=== PATIENT | female | born 1970 | race Caucasian/White ===

== ENCOUNTER 2020-08-27 10:41 | Day surgery (SDC) | payer BC, OTHER ==
[2020-08-27 10:57] LABS: Specific Gravity 1.015 (1.005-1.030)
[2020-08-27] MEDS ORDERED: Ringers Lactate 1,000 ML IV ONE (11:14)
--- OUTSIDE RECORDS SUMMARY | 2020-08-27 11:29 | XMS REPORT | Continuity of Care Document ---
:1970 Author Organization [facility] t Address [facility] [place] [address] Care Team Providers Name Role Phone Eduardo Primary Care Physician Unavailable Valdemar COLE, Gus Attending Clinician Payers Payer Name Policy Type Policy Effective Expiration Source Number Date Date [employer] [id number] 2019 [place] CHOICE/CHOICE 00:00:00 Jain [id number]-Prese ntHMO/PPO Problems This patient has no known problems. Allergies, Adverse Reactions, Alerts This patient has no known allergies or adverse reactions. Social History Social Habit Start Date Stop Date Quantity Comments Source Sex Assigned At [facility] Tobacco use and 2019-10-16 2019-10-16 Never used [facility] exposure 00:00:00 00:00:00 Alcohol intake 2019-10-16 2019-10-16 Ex-drinker [facility]odist 00:00:00 00:00:00 (finding) Smoking Status Start Date Stop Date Source [facility] Medications This patient has no known medications. Vital Signs Vital Name Observation Time Observation Value Comments Source Systolic blood 2019-10-16 17:35:00 128 mm[Hg] Reneeto n Jain pressure Diastolic blood 2019-10-16 17:35:00 91 mm[Hg] [place] on Jain pressure Heart rate 2019-10-16 17:35:00 73 /min [place] [facility] Respiratory rate 2019-10-16 17:35:00 20 /min [place] Jain Oxygen saturation in 2019-10-16 17:35:00 99 /min [place] [facility] Arterial blood by Pulse oximetry Body temperature 2019-10-16 16:06:00 36.89 Nettie Renee dwyer Jain Procedures Procedure Date / Time Performed Performing Clinician Sourc e CT CERVICAL SPINE WO 2019-10-16 16:39:[address] HEAD WO CONTRAST 2019-10-16 16:33:23 Max Aldrich Jerry césar Suresh Plan of Care Planned Activity Planned Date Details Comments Source Future Scheduled 2020-03-01 INFLUENZA VACCINE Reneeto n Jain Test 00:00:00 [code = INFLUENZA VACCINE] Future Scheduled 1993 Screening for [facility] thodist Test 00:00:00 malignant neoplasm of cervix (procedure) [code = 635990667] Future Scheduled 1988 COVID-19 VACCINE (1 [place] [facility] Test 00:00:00 of 2) [code = COVID-19 VACCINE (1 of 2)] Encounters Start End Encounter Admission Attending Care Care Encounter Source Date/Time Date/Time Type Type Clinicians Facility Department ID 2019-10-16 2019-10-16 Emergency [facility] 064 [id number] [place] 00:00:00 00:00:00 MAX Romero6 Method i st Results Test Description Test Time Test Comments Results Result Sour e Comments CT Cervical 2019-09-30 [facility] [place] Spine Wo [address] Contrast 16:41:12 10/16/2019 4:44 PM CDTEXAMINATION: CT CERVICAL SPINE WO CONTRASTCLINICAL HISTORY: posterior GRIFFIN s p fall 3 - 4 wks prior COMPARISON: NoneTECHNIQUE: Axial noncontrast enhanced images of the cervical spine were obtained with coronal and sagittal reconstructed algorithms. CT imaging was performed with iterative reconstruction technique and/or automated exposure control to reduce radiation dose.FINDINGS:The alignment of the cervical spine is within normal limits. No subluxation. No displaced fractures identified. Vertebral body heights are preserved. No developmental canal narrowing. No suspicious osseous lesion. No prevertebral edema or neck mass identified. No cervical lymphadenopathy or paraspinal hematomas. Thyroid gland is normal in appearance. Lung apices are clear.Axial images through the disc spaces demonstrate the following:C1-C2: No significant spinal canal stenosis.C2-C3: No significant posterior disc disease, spinal canal, subarticular zone, or neural foraminal stenosis.C3-C4: No significant posterior disc disease, spinal canal, subarticular zone, or neural foraminal stenosis.C4-C5: No significant posterior disc disease, spinal canal, subarticular zone, or neural foraminal stenosis.C5-C6: No significant posterior disc disease, spinal canal, subarticular zone, or neural foraminal stenosis.C6-C7: Mild intervertebral disc height loss with marginal endplate osteophytes which indent the ventral thecal sac and results in mild bilateral neural foraminal narrowing, image 77 of series 8. Spinal canal is patent.C7-T1: No significant posterior disc disease, spinal canal, subarticular zone, or neural foraminal stenosis.IMPRESSION: No fractures or traumatic injuries identified within the cervical spine.[id number] CT Head Wo 2019-09-30 [facility], [place] Contrast 7 Radiology Results Methodi 16:35:31 - 10/16/2019 4:38 PM CDTEXAMINATION: CT HEAD WO CONTRASTCLINICAL HISTORY: fall 3 -4 wks prior persistent GRIFFIN disorientation COMPARISON: None.TECHNIQUE: Noncontrast head CT performed using radiation dose reduction techniques. Technical factors are evaluated and adjusted to ensure appropriate moderation of exposure. Automated dose management technology is applied to adjust radiation exposure while achieving a diagnostic quality image. FINDINGS:No acute intra or extra-axial hemorrhage identified. The cedeno-white matter differentiation is preserved. The basal ganglia, thalami, midbrain, martinez and cervicomedullary junction are unremarkable. No mass, mass effect, or midline shift is seen. Ventricles and sulci are normal in appearance for patient's age. Basal cisterns are patent. Calvarium is intact.The orbital contents are symmetric and normal in appearance. The visualized paranasal sinuses are unremarkable. The mastoid air cells and middle ear cavities are clear. Scalp soft tissues are unremarkable. No scalp hematomas.IMPRESSION: No acute intracranial abnormality identified.[id number]
--- OUTSIDE RECORDS SUMMARY | 2020-08-27 11:29 | XMS REPORT | Clinical Summary ---
:1970 Author Organization [facility] Address [address] [place] [address] Care Team Providers Name Role Phone Chace Clark Primary Care Provider Unavailable Allergies No Known Active Allergies Medications No known medications Active Problems Not on file Encounters Date Type Specialty Care Team Description 10/16/2019 Emergency Emergency Medicine Max Aldrich Nonintrac table headache, MD Gus unspecified ch ronicity pattern, unspec ified headache type ( Primary Dx) 10/16/2019 Travel after 08/27/2019 Surgical History Surgery Date Site/Laterality Comments BACK SURGERY Social History Tobacco Use Types Packs/Day Years Used Date Never Smoker Smokeless Tobacco: Never Used Alcohol Use Drinks/Week oz/Week Comments Not Currently Sex Assigned at Date Recorded Not on file Last Filed Vital Signs Vital Sign Reading Time Taken Comments Blood Pressure 128/91 10/16/2019 5:35 PM CDT Pulse 73 10/16/2019 5:35 PM CDT Temperature 36.9 C (98.4 F) 10/16/2019 4:06 PM CDT Respiratory Rate 20 10/16/2019 5:35 PM CDT Oxygen Saturation 99% 10/16/2019 5:35 PM CDT Inhaled Oxygen Concentration - - Weight - - Height - - Body Mass Index - - Plan of Treatment Health Maintenance Due Date Last Done Comments COVID-19 VACCINE (1 of 2) 1988 CERVICAL CANCER SCREENING 1993 INFLUENZA VACCINE 03/01/2020 Procedures Procedure Name Priority Date/Time Associated Diagnosis Comme nts CT CERVICAL SPINE STAT 10/16/2019 4:39 PM Res ults for this WO CONTRAST CDT procedure are i n the results section. CT HEAD WO CONTRAST STAT 10/16/2019 4:33 PM R esults for this CDT procedure are i n the results section. after 08/27/[address] Cervical Spine Wo Contrast (10/16/2019 4:39 PM CDT) Specimen Narrative Performed At EXAMINATION: CT CERVICAL SPINE WO CONTRA [facility] CLINICAL HISTORY: posterior GRIFFIN s p fal l 3 - 4 wks prior COMPARISON: None TECHNIQUE: Axial noncontrast enhanced images of the ce rvical spine were obtained with coronal and sagittal reconstructed algor ithms. CT imaging was performed with iterative reconstruction technique and/or automated exposure control to reduce radiation dose. FINDINGS: The alignment of the cervical spine is within normal l imits. No subluxation. No displaced fractures identified. Verteb ral body heights are preserved. No developmental canal narrowing. No dumas spicious osseous lesion. No prevertebral edema or neck mass identified. No cerv ical lymphadenopathy or paraspinal hematomas. Thyroid gland is normal in appearance. Lung apices are clear. Axial images through the disc spaces dem onstrate the following: C1-C2: No significant spinal canal steno sis. C2-C3: No significant posterior disc disease, spinal c anal, subarticular zone, or neural foraminal stenosis. C3-C4: No significant posterior disc disease, spinal c anal, subarticular zone, or neural foraminal stenosis. C4-C5: No significant posterior disc disease, spinal c anal, subarticular zone, or neural foraminal stenosis. C5-C6: No significant posterior disc disease, spinal c anal, subarticular zone, or neural foraminal stenosis. C6-C7: Mild intervertebral disc height loss with gisela nal endplate osteophytes which indent the ventral thecal sac and re sults in mild bilateral neural foraminal narrowing, image 77 of seri es 8. Spinal canal is patent. C7-T1: No significant posterior disc disease, spinal c anal, subarticular zone, or neural foraminal stenosis. IMPRESSION: No fractures or traumatic injuries ident ified within the cervical spine. [id number] Procedure Note Hm Interface, Radiology Results Incoming - 10/16/2019 4:44 PM CDT EXAMINATION: CT CERVICAL SPINE WO CONTRAST CLINICAL HISTORY: posterior GRIFFIN s p fall 3 - 4 wks prior COMPARISON: None TECHNIQUE: Axial noncontrast enhanced im ages of the cervical spine were obtained with coronal and sagittal reconstructed algorithms. CT imaging was performed with iterative reconstruction technique and/or automated exposure control to reduce radiation dose. FINDINGS: The alignment of the cervical spine is w ithin normal limits. No subluxation. No displaced fractures identified. Vertebral body heights are preserved. No developmental canal narrowing. No suspicious osseous lesion. No prevertebral edema or neck mass ident ified. No cervical lymphadenopathy or paraspinal hematomas. Thyroid gland is normal in appearance. Lung apices are clear. Axial images through the disc spaces dem onstrate the following: C1-C2: No significant spinal canal steno sis. C2-C3: No significant posterior disc dis ease, spinal canal, subarticular zone, or neural foraminal stenosis. C3-C4: No significant posterior disc dis ease, spinal canal, subarticular zone, or neural foraminal stenosis. C4-C5: No significant posterior disc dis ease, spinal canal, subarticular zone, or neural foraminal stenosis. C5-C6: No significant posterior disc dis ease, spinal canal, subarticular zone, or neural foraminal stenosis. C6-C7: Mild intervertebral disc height l oss with marginal endplate osteophytes which indent the ventral thecal sac and results in mild bilateral neural foraminal narrowing, image 77 of series 8. Spinal canal is patent. C7-T1: No significant posterior disc dis ease, spinal canal, subarticular zone, or neural foraminal stenosis. IMPRESSION: No fractures or traumatic injuries ident ified within the cervical spine. [id number] Performing Organization Address City/State/ZIP Code Phon e Number [facility] [id number] [place] [address] CT Head Wo Contrast (10/16/2019 4:33 PM CDT) Specimen Narrative Performed At EXAMINATION: CT HEAD WO CONTRAST [facility] CLINICAL HISTORY: fall 3 -4 wks prior persistent GRIFFIN disorientation COMPARISON: None. TECHNIQUE: Noncontrast head CT performed using radiati on dose reduction techniques. Technical factors are evaluated and adju sted to ensure appropriate moderation of exposure. Automated dose m anagement technology is applied to adjust radiatio n exposure while achieving a diagnostic quality evita ge. FINDINGS: No acute intra or extra-axial hemorrhage identified. T he cedeno-white matter differentiation is preserved. The basal ganglia , thalami, midbrain, martinez and cervicomedullary junction are unrem arkable. No mass, mass effect, or midline shift is seen. V entricles and sulci are normal in appearance for patient's age. Basal cisterns are patent. Calvarium is intact. The orbital contents are symmetric and normal in appea elza. The visualized paranasal sinuses are unremarkable. The mas toid air cells and middle ear cavities are clear. Scalp soft tissues are unremarkable. No scalp hematomas. IMPRESSION: No acute intracranial abnormality identi fied. [id number] Procedure Note Hm Interface, Radiology Results Incoming - 10/16/2019 4:38 PM CDT EXAMINATION: CT HEAD WO CONTRAST CLINICAL HISTORY: fall 3 -4 wks prior p ersistent GRIFFIN disorientation COMPARISON: None. TECHNIQUE: Noncontrast head CT performed using radiation dose reduction techniques. Technical factors are evaluated and adjusted to ensure appropriate moderation of exposure. Automated dose management technology is applied to adjust radiation exposure while achieving a diagnostic quality evita ge. FINDINGS: No acute intra or extra-axial hemorrhage identified. The cedeno-white matter differentiation is preserved. The basal ganglia, thalami, midbrain, martinez and cervicomedullary junction are unremarkable. No mass, mass effect, or midline shift is seen. Ventricles and sulci are normal in appearance for patient's age. Basal cisterns are patent. Calvarium is intact. The orbital contents are symmetric and n ormal in appearance. The visualized paranasal sinuses are unremarkable. The mastoid air cells and middle ear cavities are clear. Scalp soft tissues are unremarkable. No scalp hematomas. IMPRESSION: No acute intracranial abnormality identi fied. [id number] Performing Organization Address City/State/ZIP Code Phon e Number [facility] [address] [place] [address] after 08/27/2019 Advance Directives For more information, please contact: [phone] Type Date Recorded Patient Tariff Clerk Explanati on Advance Directives, Living Will 10/16/2019 5:21 PM and Medical Power of Icu Manager
[2020-08-27] MEDS ORDERED: propofoL 200 MG/20 ML VIAL IV ONE (11:48)
[2020-08-27] MEDS ORDERED: LIDOCAINE 1% MPF 5 ML VIAL ONE (11:48)
[2020-08-27 12:55] VITALS: O2SAT 100
[2020-08-27 12:56] VITALS: BP 118/78; TEMP 98.6
== END 2020-08-27 12:45 | disposition home or self-care (01) ==
LOC: OR 10:41
PROVIDERS: ATTEND Surgery
PROC: 0DJD8ZZ Inspection of Lower Intestinal Tract, Via Natural or Artificial Opening Endoscopic (ICD-10-PCS; principal; 2020-08-27 11:30)
DX: R10.31 Right lower quadrant pain (principal); K59.00 Constipation, unspecified; R19.7 Diarrhea, unspecified; K64.4 Residual hemorrhoidal skin tags; K64.8 Other hemorrhoids; F41.8 Other specified anxiety disorders; K40.90 Unilateral inguinal hernia, without obstruction or gangrene, not specified as recurrent; N39.0 Urinary tract infection, site not specified; Z20.822 Contact with and (suspected) exposure to COVID-19
CPT/HCPCS: 81025; 45378; U0002; J2704; J7120